=== PATIENT | female | born 1990 | race Hispanic/Latino ===

== ENCOUNTER 2021-05-14 21:23 | Inpatient (IN) | payer BC ==
[2021-05-14 21:47] VITALS: BMI 26.2
[2021-05-14] MEDS ORDERED: NS w/ Oxytocin 30 units 500 ML IVPB SCH (22:45)
[2021-05-14] MEDS ORDERED: Lactated Ringer's 1,000 ML IV SCH (22:45)
[2021-05-14] MEDS ORDERED: Acetaminophen 500 MG TAB PO PRN (22:45)
[2021-05-14] MEDS ORDERED: hydrALAZINE 20 MG/ML VIAL SLOW IVP PRN (22:45)
[2021-05-14] MEDS ORDERED: Misoprostol 200 MCG TAB RC PRN (22:45)
[2021-05-14] MEDS ORDERED: Carboprost 250 MCG/ML AMP IM PRN (22:45)
[2021-05-14] MEDS ORDERED: Promethazine HCl 25 MG/ML VIAL IM PRN (22:45)
[2021-05-14] MEDS ORDERED: Ondansetron PF 4 MG/2 ML Vial IVP PRN (22:45)
[2021-05-14] MEDS ORDERED: Lidocaine 1% (PF) 30 ML VIAL SC PRN (22:45)
[2021-05-14] MEDS ORDERED: Ibuprofen 800 MG TAB PO PRN (22:45)
[2021-05-14] MEDS ORDERED: Butorphanol Tartrate 1 MG/ML VIAL SLOW IVP PRN (22:45)
[2021-05-14] MEDS ORDERED: Methylergonovine 0.2 MG/ML VIAL IM PRN (22:45)
[2021-05-14] MEDS ORDERED: NS w/ Oxytocin 30 units 500 ML IV SCH ×2 (22:45)
[2021-05-14 23:36] LABS: Hemoglobin 9.1 g/dL (12.0-15.5); Mean Corpuscular HGB CONC 33.3 g/dL (32.0-36.0); Mean Corpuscular Hemoglobin 24.7 pg (27.0-33.0); Mean Platelet Volume 11.4 fl (7.4-10.4); Platelet Count 318 10x3/uL (150-450); RBC Distribution Width 14.7 % (11.5-14.5); Red Blood Cell (RBC) Count 3.69 10x6/uL (3.90-5.03); White Blood Cell (WBC) Count 10.1 10x3/uL (3.5-10.5)
[2021-05-15 00:07] LABS: Syphilis Antibody Nonreactive (Nonreactive); Syphilis Antibody Index 0.03 S/CO (<1.00 Non-Reactive)
[2021-05-15 00:08] LABS: Hep B Surf Ag Non-Reactive S/CO (NonReactive)
[2021-05-15 00:21] LABS: HBSAg Index 0.12 S/CO (0-0.99)
[2021-05-15] MEDS ORDERED: traMADol HCl 50 MG TAB PO PRN (03:02)
[2021-05-15] MEDS ORDERED: Lanolin Ointment 7 GM TUBE TOP PRN (03:02)
[2021-05-15] MEDS ORDERED: hydrALAZINE 20 MG/ML VIAL SLOW IVP PRN (03:02)
[2021-05-15] MEDS ORDERED: Milk Of Magnesia 30 ML UDCUP PO PRN (03:02)
[2021-05-15] MEDS ORDERED: Benzocaine-Menthol 82.5 ML CAN TOP PRN (03:02)
[2021-05-15] MEDS ORDERED: diphenhydrAMINE 25 MG CAP PO PRN (03:02)
[2021-05-15] MEDS ORDERED: Methylergonovine 0.2 MG/ML VIAL IM PRN (03:02)
[2021-05-15] MEDS ORDERED: Preparation H Ointment 28 GM TUBE PR PRN (03:02)
[2021-05-15] MEDS ORDERED: Bisacodyl 10 MG SUPP PR PRN (03:02)
[2021-05-15] MEDS: Ibuprofen 800 MG TAB PO SCH ×3 (06:09→21:31)
[2021-05-15] MEDS ORDERED: Boostrix 0.5 ML (Tdap) VIAL IM ONE (09:00)
[2021-05-15] MEDS: Ferrous Sulfate 325 MG TAB PO SCH ×2 (09:04→17:00)
[2021-05-15] MEDS: Docusate Calcium (SURFAK) 240 MG CAP PO SCH ×2 (09:04→21:31)
[2021-05-15] MEDS: Prenatal Vitamin 1 TAB PO SCH (09:04)
[2021-05-15 17:34] LABS: SARS-CoV-2 PCR by NAA Not Detected (NotDetected)
[2021-05-16] MEDS: Ibuprofen 800 MG TAB PO SCH ×2 (05:34→13:38)
[2021-05-16 07:24] VITALS: BP 116/60; TEMP 97.9
[2021-05-16] MEDS: Prenatal Vitamin 1 TAB PO SCH (09:06)
[2021-05-16] MEDS: Docusate Calcium (SURFAK) 240 MG CAP PO SCH (09:06)
[2021-05-16] MEDS: Ferrous Sulfate 325 MG TAB PO SCH ×2 (09:06→18:19)
== END 2021-05-16 18:37 | disposition home or self-care (01) | DRG 807 ==
LOC: CSHLD/OP 21:23 → CSHLD 22:22 → UNDOADMIN 05-15 01:13 → CSHPP 05-15 05:01 → CSHLD 05-15 05:01
PROVIDERS: ADMIT Obstetrics & Gynecology; ATTEND Obstetrics & Gynecology
PROC: 10E0XZZ Delivery of Products of Conception, External Approach (ICD-10-PCS; principal; 2021-05-15)
PROC: 0HQ9XZZ Repair Perineum Skin, External Approach (ICD-10-PCS; 2021-05-15)
DX: O99.02 Anemia complicating childbirth (principal); Z37.0 Single live birth; D50.9 Iron deficiency anemia, unspecified; O70.0 First degree perineal laceration during delivery; Z3A.38 38 weeks gestation of pregnancy; Z20.822 Contact with and (suspected) exposure to COVID-19
CPT/HCPCS: 36415; 85027; 86780; 86850; 86900; 86901; 87340; 99285; J0595; J2001; J2590; U0003; U0005